=== PATIENT | male | born 1955 | race Caucasian/White ===

== ENCOUNTER → 2016-05-19 | Outpatient (CLI) | payer MEDICARE, BC ==
[~2016-05-19] MED LIST: MELATONIN5 M2 PO; TEMODAR5 MG PO; TOPAMAX50 MG PO; ULTRAM DPS50 MG PO; VIMPAT50 MG PO; ZOFRAN8 MG PO
== END | disposition home or self-care (01) ==
LOC: PTH.S 10:00 → RAD.S 10:45
DX: D49.6 Neoplasm of unspecified behavior of brain (principal); C71.2 Malignant neoplasm of temporal lobe; I82.91 Chronic embolism and thrombosis of unspecified vein; Z98.890 Other specified postprocedural states